=== PATIENT | male | born 1980 | race Caucasian/White ===

== ENCOUNTER 2017-02-13 13:45 | Emergency (ER) | payer MEDICAID, OTHER ==
[~2017-02-13] VITALS: Ht 177.8 cm; Wt 105.0 kg
[2017-02-13] MEDS ORDERED: TAMS0.4C2 PO (14:29)
[2017-02-13] MEDS ORDERED: LEVO112T4 PO (14:29)
[2017-02-13] MEDS ORDERED: HYDR12.58 PO (14:29)
[2017-02-13] MEDS ORDERED: AMLO5TAB2 PO (14:29)
[2017-02-13] MEDS ORDERED: ENAL20TA PO (14:29)
[2017-02-13] MEDS ORDERED: SIMV20TA3 PO (14:30)
[2017-02-13 14:48] LABS: HEMOGLOBIN 15.2 g/dL (13.7-18.0); WHITE BLOOD COUNT 10.1 x10^3/uL (3.4-10)
[2017-02-13 14:59] LABS: BLOOD UREA NITROGEN 11 mg/dL (7-18)
[2017-02-13 15:05] VITALS: BP 137/92
== END 2017-02-13 15:49 | disposition home or self-care (01) ==
LOC: ED 15:43
DX: S86.111A Strain of other muscle(s) and tendon(s) of posterior muscle group at lower leg level, right leg, initial encounter (principal); I10 Essential (primary) hypertension; X58.XXXA Exposure to other specified factors, initial encounter; Y93.89 Activity, other specified; Y92.89 Other specified places as the place of occurrence of the external cause; Y99.8 Other external cause status
CPT/HCPCS: 36415; 80048; 82040; 85025; 85610; 85730; 93005; 99285